=== PATIENT | female | born 1965 | race Caucasian/White ===

== ENCOUNTER 2018-11-19 07:58 | Day surgery (SDC) | payer OTHER ==
[2018-11-15 09:46] VITALS: BMI 25.8
[~2018-11-19 07:58] MED LIST: LACTATED RINGERS 1,000 ML IV SCH; LIDOCAINE 1% 20 ML VIAL (10MG/ML) FOR IV START INTRADERMA PRN
[2018-11-19 08:10] VITALS: TEMP 97.8
[2018-11-19] MEDS ORDERED: LACTATED RINGERS 1,000 ML IV ONE (08:13)
[2018-11-19] MEDS ORDERED: PROPOFOL 10 MG/ML 20 ML VIAL IV ONE (08:54)
[2018-11-19] MEDS ORDERED: LIDOCAINE 1% INJ 10MG/ML (20 ML MDV) ONE (08:54)
--- NOTE | 2018-11-19 08:57 | P.GSHP ---
History of Present Illness H&P Date: 11/19/18 Chief Complaint: Screening colonoscopy This a 52-year-old female who presents today for screening colonoscopy. Patient denies any significant GI complaints. Past Medical History Past Medical History: Thyroid Disorder Additional Past Medical History / Comment(s): RIGHT BREAST MASS History of Any Multi-Drug Resistant Organisms: None Reported Additional Past Surgical History / Comment(s): BILAT LASER EYE SX. CYST REMOVED NEAR "[employer]PLE" AT AGE 7 Past Anesthesia/Blood Transfusion Reactions: No Reported Reaction Smoking Status: Never smoker - Past Family History Mother Family Medical History: No Reported History Medications and Allergies Home Medications Medication Instructions Recorded Confirmed Type Multivitamins, Thera [Multivitamin] 1 tab PO DAILY 12/26/14 11/15/18 History Levothyroxine Sodium [Synthroid] 150 mcg PO DAILY 11/15/18 11/15/18 History Allergies Allergy/AdvReac Type Severity Reaction Status Date / Time Penicillins Allergy Nausea & Verified 11/15/18 09:41 Vomiting & Diarrhea Surgical - Exam Vital Signs Temp Pulse Resp BP Pulse Ox 97.8 F 86 18 135/67 99 11/19/18 08:09 11/19/18 08:09 11/19/18 08:09 11/19/18 08:09 11/19/18 08:09 - General well developed, no distress - Eyes PERRL - ENT normal pinna - Neck no masses - Respiratory normal expansion - Cardiovascular Rhythm: regular - Abdomen Abdomen: soft, non tender Assessment and Plan Assessment: We'll perform screening colonoscopy.
--- NOTE | 2018-11-19 09:16 | P.OP ---
Date of Procedure: 11/19/18 Preoperative Diagnosis: Screening colonoscopy Postoperative Diagnosis: Sigmoid colon polyp Procedure(s) Performed: Colonoscopy Anesthesia: MAC Surgeon: Mitchel Cristobal Pathology: other (Sigmoid colon polyp) Condition: stable Disposition: PACU Description of Procedure: Patient's placed on the endoscopy table in the lateral position. She received IV sedation. The digital rectal exam was performed which revealed no abnormalities. The flexible colonoscope was then placed patient anus passed throughout the entire colon. The ileocecal valve was visualized. The cecum, ascending and transverse colon appeared normal. The descending colon appeared normal. In the sigmoid colon was small polyp. This was removed with the cold forcep. Scope was then brought back the rectum and this appeared normal. Scope was withdrawn for patient.
[2018-11-19 09:18] VITALS: RESP 16
[2018-11-19 09:37] VITALS: BP 114/73; PULSE 68
== END 2018-11-19 10:05 | disposition home or self-care (01) ==
LOC: ORWHC2ENDO 07:58
PROVIDERS: ATTEND Surgery
DX: Z12.11 Encounter for screening for malignant neoplasm of colon (principal); K63.5 Polyp of colon; Z79.890 Hormone replacement therapy; Z79.899 Other long term (current) drug therapy; Z88.0 Allergy status to penicillin
CPT/HCPCS: 81025; 88305; 45380; J2001; J2704